=== PATIENT | male | born 1995 | race Caucasian/White ===

== ENCOUNTER 2017-03-11 15:26 | Emergency (ER) | payer BC ==
[~2017-03-11] VITALS: Ht 182.9 cm; Wt 89.4 kg
[~2017-03-11 15:26] MED LIST: FLEXERIL10 MG PO; MOTRIN800 MG PO; ULTRAM50 MG PO
[2017-03-11] MEDS ORDERED: ZOFRAN4 MG PO (17:03)
[2017-03-11] MEDS ORDERED: TRAZODONE HCL50 MG PO (17:03)
[2017-03-11] MEDS ORDERED: REGLAN10 MG PO (17:03)
[2017-03-11] MEDS ORDERED: CLONIDINE HCL0.1 MG PO (17:03)
[2017-03-11 17:46] VITALS: BP 133/81
== END 2017-03-11 17:47 | disposition home or self-care (01) ==
LOC: EME 15:26
DX: F11.23 Opioid dependence with withdrawal (principal); F32.9 Major depressive disorder, single episode, unspecified; Z72.0 Tobacco use
CPT/HCPCS: 80048; 85027; 90839; 99281; 99284; G0480

== ENCOUNTER 2017-03-12 15:36 | Emergency (ER) | payer BC ==
[~2017-03-12] VITALS: Ht 182.9 cm; Wt 88.1 kg
[~2017-03-12 15:36] MED LIST changes: +CLONIDINE HCL0.1 MG PO; +REGLAN10 MG PO; +TRAZODONE HCL50 MG PO; +ZOFRAN4 MG PO
[2017-03-12 18:24] VITALS: BP 113/54
== END 2017-03-12 18:29 | disposition home or self-care (01) ==
LOC: EME 15:36
DX: F11.10 Opioid abuse, uncomplicated (principal); F32.9 Major depressive disorder, single episode, unspecified; J45.909 Unspecified asthma, uncomplicated; Z72.0 Tobacco use
CPT/HCPCS: 90839; 99281; 99284

== ENCOUNTER 2017-04-10 11:47 | Emergency (ER) | payer BC ==
[~2017-04-10] VITALS: Ht 182.9 cm; Wt 90.1 kg
[2017-04-10] MEDS ORDERED: TORADOL10 MG PO (13:12)
[2017-04-10] MEDS ORDERED: ZOFRAN4 MG PO (13:12)
[2017-04-10] MEDS ORDERED: TRAZODONE HCL50 MG PO (13:12)
[2017-04-10] MEDS ORDERED: CLONIDINE HCL0.1 MG PO (13:12)
[2017-04-10 13:39] VITALS: BP 00/00
== END 2017-04-10 13:43 | disposition home or self-care (01) ==
LOC: EME 11:47
DX: F11.23 Opioid dependence with withdrawal (principal); F17.200 Nicotine dependence, unspecified, uncomplicated
CPT/HCPCS: 99281; 99284

== ENCOUNTER 2017-07-12 16:24 | Emergency (ER) | payer BC ==
[~2017-07-12] VITALS: Ht 182.9 cm; Wt 90.4 kg
[~2017-07-12 16:24] MED LIST changes: +TORADOL10 MG PO
[2017-07-12] MEDS ORDERED: CATAPRES-TTS 11 EACH TD (16:58)
[2017-07-12 17:49] VITALS: BP 110/87
== END 2017-07-12 17:50 | disposition home or self-care (01) ==
LOC: EME 16:24
DX: F11.23 Opioid dependence with withdrawal (principal); J45.909 Unspecified asthma, uncomplicated; M48.00 Spinal stenosis, site unspecified; F17.200 Nicotine dependence, unspecified, uncomplicated